=== PATIENT | female | born 1960 | race American Indian/Alaskan Native ===

== ENCOUNTER 2018-10-30 10:21 | Outpatient (CLI) | payer MEDICAID ==
--- NOTE | 2018-10-30 11:18 | Mammography Report ---
LEFT DIGITAL DIAGNOSTIC MAMMOGRAM : 10/30/18 10:21:00 CLINICAL: Recalled to evaluate retroareolar asymmetry and architectural distortion. COMPARISON:08/20/18 screening FINDINGS: ML and exaggerated CC and spot magnification MLO views were performed and are negative. Satisfactory effacement of asymmetry architectural distortion. IMPRESSION: Negative Mammogram. BI-RADS CATEGORY: 1 -- Negative RECOMMENDATION: Routine mammographic screening in one year. ACR BI-RADS MAMMOGRAPHIC CODES: 0 = Needs additional imaging evaluation; 1 = Negative; 2 = Benign; 3 = Probably benign; 4 = Suspicious; 5 = Malignant; 6 = Known biopsy-proven malignancy COMMENT: 1. Dense breast tissue, i.e., adenosis, fibrocystic changes, etc., may obscure an underlying neoplasm. 2. Approximately 10% of cancers are not detected with mammography. 3. A negative mammography report should not delay biopsy if a clinically suspicious mass is present. COMMENT: Patient follow-up letters are generated via our [employer] application.
== END 2018-10-30 10:22 | disposition home or self-care (01) ==
LOC: SPVWC 10:21
PROVIDERS: ATTEND Family Medicine
DX: R92.2 Inconclusive mammogram (principal); I10 Essential (primary) hypertension; E66.9 Obesity, unspecified

== ENCOUNTER 2020-12-01 11:20 | Outpatient (CLI) | payer MEDICAID ==
--- NOTE | 2020-12-02 07:43 | Mammography Report ---
DIGITAL SCREENING MAMMOGRAM WITH CAD, 12/01/2020 CLINICAL INFORMATION / INDICATION: Routine screening mammography. SCREENING MAMMO TECHNIQUE: Digital bilateral 2D mammography was obtained in the craniocaudal and mediolateral obliqu e projections. This examination was interpreted with the benefit of Computer-Aided Detection analysis . COMPARISON: 08/20/2018 FINDINGS: Breast Density: The breasts are heterogeneously dense, which may obscure small masses. No dominant mass, suspicious calcifications, or architectural distortion in either breast. IMPRESSION: No mammographic evidence of malignancy. Follow up recommendation: Routine yearly BI-RADS Category 1: Negative. A "normal" or negative report should not discourage follow up or biopsy of a clinically significant f inding. A written summary of these findings will be mailed to the patient. The patient will be entered into a mammography reporting system which will generate a reminder letter for the patient's next appointmen t at the appropriate interval. The [employer] recommends yearly mammograms starting at age 40 and continuing as l evangelista as a woman is in good health. Breast MRI is recommended for women with an approximate 20-25% or greater lifetime risk of breast cancer, including women with a strong family history of breast or ova harshad cancer or who have been treated for Hodgkin's disease. Signer Name: Jonathan Lovelace MD Signed: 12/02/2020 7:38 AM Workstation Name: [id number]
== END 2020-12-01 11:21 | disposition home or self-care (01) ==
LOC: SPVWC 11:20
PROVIDERS: ATTEND Family Medicine
DX: Z12.31 Encounter for screening mammogram for malignant neoplasm of breast (principal)
CPT/HCPCS: 77067

== ENCOUNTER 2021-10-18 22:42 | Emergency (ER) | payer MEDICAID ==
[2021-10-18] MEDS ORDERED: AMIODARONE 360 MG in DEXTROSE 5% IN WATER 200 ML IV SCH (23:00)
[2021-10-18] MEDS ORDERED: EPINEPHrine 1 MG/1 ML 8 MG in SODIUM CHLORIDE 0.9% 250ML 242 ML IV ONE (23:27)
[2021-10-18] MEDS ORDERED: SODIUM CHLORIDE 0.9% 1000 ML 1,000 ML IV ONE (23:31)
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
[2021-10-18] MEDS ORDERED: NORepinephrine/NS 8 MG-250 ML 8 MG/250 ML INFUS..BTL IV SCH (23:45)
[2021-10-18] MEDS ORDERED: AMIODARONE 900 MG in DEXTROSE 5% IN WATER 482 ML IV SCH (23:45)
[2021-10-19 00:12] LABS: Mean Corpuscular HGB Conc 29 % (30-34); Mean Corpuscular Volume 89 fl (79-97); Red Blood Count 3.44 M/mm3 (3.65-5.03); Red Cell Distribution Width 18.2 % (13.2-15.2)
[2021-10-19 00:15] LABS: Hematocrit 30.6 % (30.3-42.9); Hemoglobin 8.8 gm/dl (10.1-14.3); Platelet Count 145 K/mm3 (140-440)
[2021-10-19 00:33] LABS: Creatine Kinase MB 7.1 ng/mL (0.0-4.0)
[2021-10-19 00:34] LABS: Calcium 9.3 mg/dL (8.4-10.2)
[2021-10-19 00:44] LABS: INR 9.5 (0.87-1.13); Partial Thromboplastin Time 226.9 Sec. (24.2-36.6)
[2021-10-19 01:39] LABS: Band Neutrophils # (Manual) 1.6 K/mm3; Basophils % (Manual) 0 % (0.0-1.8); Promyelocytes # (Manual) 0.6 K/mm3; Total Cells Counted 100
[2021-10-19 01:41] LABS: Anisocytosis 1+; Hypochromasia 1+; Large Platelets Few; Platelet Estimate Consistent w Auto
[2021-10-19 02:08] LABS: Chol/HDL Ratio 4.6 %
[2021-10-19] MEDS ORDERED: AMIODARONE 360 MG in DEXTROSE 5% IN WATER 192.8 ML IV SCH (03:35)
--- NOTE | 2021-10-19 07:04 | XRay Report ---
CHEST 1 VIEW INDICATION: chest pain. COMPARISON: 01/27/2016 FINDINGS: SUPPORT DEVICES: Endotracheal tube is at the right mainstem bronchus and should be retracted 7 cm. HEART: Within normal limits. LUNGS/PLEURA: Defibrillator pad over the right lung with mild patchy multifocal airspace disease. ADDITIONAL FINDINGS: None. IMPRESSION: 1. Retracted trachea to 7 cm, located at right mainstem bronchus 2. Mild patchy multifocal airspace disease. Signer Name: Jonathan Lovelace MD Signed: 10/19/2021 6:59 AM Workstation Name: [facility] [id number]
--- NOTE | 2021-10-19 10:06 | Electrocardiograph Report ---
[facility] Test Date: 2021-10-18 Test Time: 23:10:40 Pat Name: MECEH HANNA Department: Room: Gender: F Archives Director: : [id number] Requested By: ERICA SANDY Order Number: [id number] Reading MD: Samir Watson Measurements Intervals [place] Rate: 82 P: 37 DC: 175 QRS: 8 QRSD: 188 T: -16 QT: 418 QTc: 489 Interpretive Statements Sinus rhythm Right bundle branch block No previous ECG available for comparison Electronically Signed On 10-19-2021 10:06:04 EST by Samir Watson
== END 2021-10-19 04:45 ==
LOC: ED 22:42
DX: I46.9 Cardiac arrest, cause unspecified (principal); I10 Essential (primary) hypertension; E11.8 Type 2 diabetes mellitus with unspecified complications; Z87.891 Personal history of nicotine dependence
CPT/HCPCS: 36415; 71045; 80048; 80061; 82550; 82553; 84484; 85007; 85025; 85610; 85730; 86850; 86900; 86901; 93005; 94002; 96365; 96366; 96368; 99291; J0171; J0282; J2354; J3490; J7050